=== PATIENT | female | born 1995 ===

== ENCOUNTER 2016-12-22 01:11 | Observation (INO) | payer OTHER ==
[2016-12-22 01:15] VITALS: BMI 29.2
[2016-12-22] MEDS ORDERED: Sodium Chloride 0.9% 1,000 ML IV STA (01:17)
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
[2016-12-22 02:14] LABS: BASO # 0.1 K/uL (0.0-0.2); BASO % 0.5 % (0.0-2.0); EOS # 0.3 K/uL (0.0-0.7); EOS % 2.9 % (0.0-4.0); HEMOGLOBIN 14.2 g/dL (12.0-16.0); LYMPH # 2.6 K/uL (1.0-4.3); LYMPH % 25.2 % (20.0-40.0); MEAN CELL VOLUME 93.4 fl (81.0-99.0); MEAN CORPUSCULAR HEMOGLOBIN 31.1 pg (27.0-31.0); MEAN CORPUSCULAR HGB CONC 33.3 g/dL (33.0-37.0); MONO # 0.6 K/uL (0.0-0.8); MONO % 6.2 % (0.0-10.0); NEUT # 6.6 K/uL (1.8-7.0); NEUT % 65.2 % (50.0-75.0); NRBC % 0.1 % (0.0-0.0); RBC 4.57 Mil/uL (3.80-5.20); RED CELL DISTRIBUTION WIDTH 13.5 % (11.5-14.5); WHITE BLOOD COUNT 10.2 K/uL (4.8-10.8)
[2016-12-22 02:22] LABS: BLOOD UREA NITROGEN 10 mg/dl (7-17); CALCIUM 9.2 mg/dL (8.4-10.2); GFR AFRICAN-AMERICAN > 60; GFR NON-AFRICAN AMERICAN > 60
[2016-12-22] MEDS ORDERED: Iohexol 300 100 ML IJ ONE (03:02)
[2016-12-22] MEDS ORDERED: Sodium Chloride 0.9% 50 ML IV ONE (03:02)
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
[2016-12-22 07:24] VITALS: PULSE 90
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
[2016-12-22 09:18] LABS: BARBITURATES, UR NEGATIVE (NEGATIVE); BENZODIAZEPINES, UR NEGATIVE (NEGATIVE); OPIATES, UR NEGATIVE (NEGATIVE); PHENCYCLIDINE, UR NEGATIVE (NEGATIVE)
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
[2016-12-22 10:15] VITALS: BP 129/58; RESP 17; TEMP 97.7
[2016-12-22 10:16] VITALS: O2SAT 97
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
== END 2016-12-22 10:43 ==
LOC: H.ER 01:11 → H.EROBSV 02:03
PROVIDERS: ADMIT Emergency Medicine; ATTEND Emergency Medicine
DX: S80.00XA Contusion of unspecified knee, initial encounter (principal); V89.2XXA Person injured in unspecified motor-vehicle accident, traffic, initial encounter; F10.129 Alcohol abuse with intoxication, unspecified; Y92.410 Unspecified street and highway as the place of occurrence of the external cause
CPT/HCPCS: 70450; 71260; 72125; 73562; 74177; 80048; 81025; 85025; 96372; G0378; G0480; J1630; J2060; Q9967